=== PATIENT | male | born 1965 | race Caucasian/White ===

== ENCOUNTER 2018-08-22 09:45 | Day surgery (SDC) | payer OTHER ==
[2018-08-06 14:53] VITALS: BMI 30.4
--- NOTE | 2018-08-21 20:29 | HP ---
DATE OF ADMISSION: 08/22/2018 HISTORY OF PRESENT ILLNESS: This is a 53-year-old male who comes for a colonoscopy for colon cancer screening. The patient has no specific GI symptoms. The patient's father of cancer, but he is not very if this was colon cancer or prostate cancer. ALLERGIES: None. SOCIAL HISTORY: He is a former smoker. Does not drink alcohol. MEDICAL ILLNESSES: 1. Back pain. 2. Arthritis. 3. Hypertension. 4. Hyperlipidemia. 5. Anxiety. PHYSICAL EXAMINATION: VITAL SIGNS: Pulse is 70, blood pressure 120/80. HEENT: Conjunctivae clear. CARDIOVASCULAR: First and second heart sounds normal. LUNGS: Clear to auscultation. ABDOMEN: Soft to palpate. Abdomen is nontender. There is no organomegaly. No masses. Bowel sounds normal. EXTREMITIES: Reveal no edema. ADMITTING DIAGNOSIS: A 53-year-old male who comes in for colonoscopy for colon cancer screening. REN
--- NOTE | 2018-08-22 14:21 | OP ---
PREOPERATIVE DIAGNOSIS: A 53-year-old male undergoing colonoscpy for colon cancer screening. POSTOPERATIVE DIAGNOSES: 1. Small sessile sigmoid polyp. 2. Hemorrhoids. OPERATIVE PROCEDURE: Colonoscopy with biopsy. PROCEDURE NOTE: The patient was placed on his left lateral position and was given sedation by Anesthesia Department. A rectal exam was done before the scope was advanced into the rectum. No lesions felt on rectal exam. A [employer]ax video colonoscope was introduced into the rectum and advanced all the way into the cecum. The prep was excellent. The mucosa appears normal throughout the colon with normal vascular pattern. The ileocecal valve, cecum, no pathology seen. On withdrawal of scope from the cecum into the ascending colon, hepatic flexure, transverse colon, hepatic flexure, descending colon, no pathology seen. A small sessile sigmoid polyp removed with biopsy forceps. Retroflexion of scope in the rectum showed hemorrhoids. DISCHARGE PLANNING: This is a 53-year-old male who came for colonoscopy for colon cancer screening. He had removal of the polyp with biopsy forceps. DISCHARGE RECOMMENDATIONS: 1. The patient was advised to call me if does have abdominal pain, hematochezia , or fever. 2. In the absence of any other symptoms, he will come back to me in 2 weeks. REN
== END 2018-08-22 14:36 | disposition home or self-care (01) ==
LOC: SDC 09:45
PROVIDERS: ATTEND Internal Medicine Gastroenterology
PROC: 0DBN8ZX Excision of Sigmoid Colon, Via Natural or Artificial Opening Endoscopic, Diagnostic (ICD-10-PCS; principal; 2018-08-22)
DX: Z12.11 Encounter for screening for malignant neoplasm of colon (principal); K63.5 Polyp of colon; K64.9 Unspecified hemorrhoids; M19.90 Unspecified osteoarthritis, unspecified site; I10 Essential (primary) hypertension; E78.5 Hyperlipidemia, unspecified; F41.9 Anxiety disorder, unspecified; Z87.891 Personal history of nicotine dependence; Z79.1 Long term (current) use of non-steroidal anti-inflammatories (NSAID)
CPT/HCPCS: 88305